=== PATIENT | female | born 1955 | race African-American/Black ===

== ENCOUNTER 2019-03-31 01:43 | Emergency (ER) | payer SELFPAY ==
[~2019-03-31] VITALS: Ht 157.5 cm; Wt 50.0 kg
[2019-03-31 02:53] LABS: BASOPHILS % (AUTO) 1.9 % (0.0-2.0); EOSINOPHILS % (AUTO) 1.8 % (1.0-6.0); HEMATOCRIT 32.9 % (36-46); HEMOGLOBIN 10.4 g/dL (12.0-16.0); LYMPHOCYTES # (AUTO) 0.8 K/uL (1.0-4.8); LYMPHOCYTES % (AUTO) 10.1 % (22.0-44.0); MEAN CORPUSCULAR HEMOGLOBIN 26.2 pg (26.0-34.0); MEAN CORPUSCULAR HGB CONC 31.6 G/dL (31.0-37.0); MEAN CORPUSCULAR VOLUME 83 fL (80-100); MONOCYTES # (AUTO) 0.8 K/uL (0.1-1.0); MONOCYTES % (AUTO) 9.9 % (2.0-9.0); NEUTROPHILS % (AUTO) 76.3 % (40.0-70.0); PLATELET COUNT (AUTO) 284 K/uL (150-450); RED BLOOD CELL COUNT(AUTO) 3.97 MIL/uL (4.00-5.20); RED CELL DISTRIBUTION WIDTH 19.4 % (11.5-14.5)
[2019-03-31 02:56] LABS: APPEARANCE,URINE CLOUDY (CLEAR); BILIRUBIN,URINE NEGATIVE (NEGATIVE); GLUCOSE, URINE (UA) NEGATIVE (NEGATIVE); KETONES,URINE NEGATIVE (NEGATIVE); LEUKOCYTE ESTERASE ,URINE TRACE (NEGATIVE); NITRATE,URINE NEGATIVE (NEGATIVE); OCCULT BLOOD,URINE SMALL (NEGATIVE); PROTEIN,URINE NEGATIVE (NEGATIVE); UROBILINOGEN,URINE 0.2 mg/dL (<=1.0)
[2019-03-31 02:58] LABS: ANION GAP 10 mmol/L (8-16); CALCIUM, TOTAL 8.8 mg/dL (8.8-10.5); CARBON DIOXIDE 27 mmol/L (22-29); CHLORIDE 105 mmol/L (98-107); CREATININE 0.85 mg/dL (0.60-1.30); GLOMERULAR FILTR. RATE CALC > 60 mL/min (>60); GLUCOSE,RANDOM 86 mg/dL (70-110); POTASSIUM 3.4 mmol/L (3.5-5.1); SODIUM SERUM 142 mmol/L (136-145); UREA NITROGEN, BLOOD 13 mg/dL (7-18)
[2019-03-31 03:04] LABS: ALBUMIN 3.4 g/dL (3.4-5.0); ALKALINE PHOSPHATASE 90 U/L (46-116); ASPARTATE AMINOTRANSFERASE 20 U/L (15-37); BILIRUBIN,TOTAL 0.2 mg/dL (0.1-1.0); LIPASE 139 U/L (73-393); TOTAL PROTEIN, SERUM 7.5 g/dL (6.4-8.2)
[2019-03-31 03:07] LABS: BACTERIA,URINE Moderate /HPF (None Seen); SQUAMOUS EPITHELIAL CELL,UR Moderate /LPF (None Seen)
[2019-03-31 03:14] LABS: ALANINE AMINOTRANSFERASE 17 U/L (12-78)
[2019-03-31] MEDS ORDERED: LOPERAMIDE HCL 2 MG CAPSULE PO ONE (03:45)
[2019-03-31 05:01] VITALS: BP 132/82
== END 2019-03-31 05:01 | disposition home or self-care (01) ==
LOC: EMS 01:45
DX: R19.7 Diarrhea, unspecified (principal); F12.90 Cannabis use, unspecified, uncomplicated; F17.210 Nicotine dependence, cigarettes, uncomplicated
CPT/HCPCS: 87086

== ENCOUNTER 2019-03-31 07:21 | Emergency (ER) | payer SELFPAY ==
[~2019-03-31] VITALS: Ht 167.6 cm; Wt 59.1 kg
[2019-03-31] MEDS ORDERED: BISMUTH SUBSALICYLATE 524 MG/30 ML SUSPENSION UDCUP PO ONE (10:45)
[2019-03-31] MEDS ORDERED: ZINC OXIDE 16% PASTE 57 GM TUBE TP ONE (10:45)
[2019-03-31] MEDS ORDERED: LOPERAMIDE HCL 2 MG CAPSULE PO ONE (10:45)
[2019-03-31 10:48] VITALS: BP 124/60
== END 2019-03-31 11:13 | disposition home or self-care (01) ==
LOC: EMS 07:23
DX: R19.7 Diarrhea, unspecified (principal); K64.4 Residual hemorrhoidal skin tags

== ENCOUNTER 2019-09-20 10:35 | Inpatient (IN) | payer MEDICAID ==
[~2019-09-20] VITALS: Ht 165.1 cm; Wt 46.9 kg
[2019-09-20 12:45] VITALS: BP 112/64
[2019-09-20] MEDS ORDERED: OLANZapine 5 MG RAPDIS TABLET PO PRN (13:15)
[2019-09-20] MEDS ORDERED: ONDANSETRON HCL 4 MG TABLET PO PRN (13:30)
[2019-09-20] MEDS ORDERED: PNEUMOCOCCAL VACCINE POLYVALENT 0.5 ML VIAL [PPSV23] IM ONE (13:30)
[2019-09-20] MEDS ORDERED: ACETAMINOPHEN 325 MG TABLET PO PRN (13:30)
[2019-09-20] MEDS ORDERED: ALBUTEROL SULFATE HFA 90 MCG/PUFF 8 GM INHALER IH PRN (13:30)
[2019-09-20] MEDS ORDERED: NICOTINE 14 MG/24 HOUR PATCH TD PRN (13:30)
[2019-09-20] MEDS ORDERED: CloNIDine HCL 0.1 MG TABLET PO PRN (13:30)
[2019-09-20] MEDS ORDERED: MAGNESIUM HYDROXIDE SUSPENSION 30 ML UDCUP PO PRN (13:30)
[2019-09-20] MEDS ORDERED: DOCUSATE SODIUM 100 MG CAPSULE PO PRN (13:30)
[2019-09-20 14:39] LABS: GLUCOMETER DEV NAME(LOC) BV2S.; GLUCOSE,POINT OF CARE 70 MG/DL (70-110)
[2019-09-20 16:06] VITALS: BP 136/71
[2019-09-20 17:12] LABS: GLUCOMETER DEV NAME(LOC) BV2S.; GLUCOSE,POINT OF CARE 104 MG/DL (70-110)
[2019-09-21 02:40] VITALS: BP 132/73
[2019-09-21] MEDS: IBUPROFEN 400 MG TABLET PO PRN (02:52)
[2019-09-21 06:25] LABS: GLUCOMETER DEV NAME(LOC) BV2S.; GLUCOSE,POINT OF CARE 70 MG/DL (70-110)
[2019-09-21 07:35] LABS: HEMATOCRIT 31.9 % (36-46); HEMOGLOBIN 10.4 g/dL (12.0-16.0); MEAN CORPUSCULAR HEMOGLOBIN 26.7 pg (26.0-34.0); MEAN CORPUSCULAR HGB CONC 32.6 G/dL (31.0-37.0); MEAN CORPUSCULAR VOLUME 82 fL (80-100); PLATELET COUNT (AUTO) 191 K/uL (150-450); RED BLOOD CELL COUNT(AUTO) 3.89 MIL/uL (4.00-5.20); RED CELL DISTRIBUTION WIDTH 18.7 % (11.5-14.5)
[2019-09-21 07:49] LABS: ALANINE AMINOTRANSFERASE 19 U/L (12-78); ALBUMIN 2.8 g/dL (3.4-5.0); ALKALINE PHOSPHATASE 86 U/L (46-116); ANION GAP 5 mmol/L (8-16); ASPARTATE AMINOTRANSFERASE 13 U/L (15-37); BILIRUBIN,TOTAL 0.1 mg/dL (0.1-1.0); CALCIUM, TOTAL 8.6 mg/dL (8.8-10.5); CARBON DIOXIDE 28 mmol/L (22-29); CHLORIDE 103 mmol/L (98-107); CHOL/HDL RATIO 4.6 (3.9-5.7); CHOLESTEROL 195 mg/dL (131-200); CREATININE 0.78 mg/dL (0.60-1.30); GLOMERULAR FILTR. RATE CALC > 60 mL/min (>60); GLUCOSE,RANDOM 78 mg/dL (70-110); HDL CHOLESTEROL 42 mg/dL (40-60); LDL CHOL (CALC.) 136 mg/dL (0-130); POTASSIUM 4.8 mmol/L (3.5-5.1); SODIUM SERUM 136 mmol/L (136-145); TRIGLYCERIDES 85 mg/dL (15-150); UREA NITROGEN, BLOOD 15 mg/dL (7-18)
[2019-09-21 07:56] LABS: HEMOGLOBIN A1C 5.9 % (3.8-5.6)
[2019-09-21 08:32] LABS: BAND NEUTROPHILS % (MANUAL) 3 % (0-5); LYMPHOCYTES % (MANUAL) 18 % (22-44); MONOCYTES % (MANUAL) 6 % (2-9); SEGMENTED NEUTROPHILS % 73 % (40-70)
[2019-09-21 08:33] VITALS: BP 102/63
[2019-09-21] MEDS: NICOTINE 14 MG/24 HOUR PATCH TD SCH (08:54)
[2019-09-21] MEDS: ASPIRIN 81 MG CHEWABLE TABLET PO SCH (12:33)
[2019-09-21] MEDS: LOPERAMIDE HCL 2 MG CAPSULE PO PRN (15:50)
[2019-09-21 16:16] VITALS: BP 131/76
[2019-09-21] MEDS: MetFORMIN HCL 500 MG TABLET PO SCH (16:55)
[2019-09-21 17:13] LABS: GLUCOMETER DEV NAME(LOC) BV2S.; GLUCOSE,POINT OF CARE 70 MG/DL (70-110)
[2019-09-21] MEDS: QUEtiapine FUMARATE 100 MG TABLET PO SCH (20:24)
[2019-09-21] MEDS: ATORVASTATIN CALCIUM 10 MG TABLET PO SCH (20:24)
[2019-09-22] MEDS: MetFORMIN HCL 500 MG TABLET PO SCH ×2 (06:36→17:01)
[2019-09-22 06:37] VITALS: BP 112/71
[2019-09-22 06:38] LABS: GLUCOMETER DEV NAME(LOC) BV2S.; GLUCOSE,POINT OF CARE 85 MG/DL (70-110)
[2019-09-22] MEDS: QUEtiapine FUMARATE 25 MG TABLET PO SCH (08:24)
[2019-09-22] MEDS: ASPIRIN 81 MG CHEWABLE TABLET PO SCH (08:24)
[2019-09-22] MEDS: NICOTINE 14 MG/24 HOUR PATCH TD SCH (08:25)
[2019-09-22 08:36] VITALS: BP 117/65
[2019-09-22] MEDS: LOPERAMIDE HCL 2 MG CAPSULE PO PRN (12:57)
[2019-09-22 16:05] VITALS: BP 100/64
[2019-09-22] MEDS: MUPIROCIN CALCIUM 2% 22 GM OINTMENT NASAL SCH (17:01)
[2019-09-22] MEDS: MAG HYDROX/AL HYDROX/SIMETH ES 30 ML SUSPENSION UDCUP PO PRN (17:01)
[2019-09-22 17:05] LABS: GLUCOMETER DEV NAME(LOC) BV2S.; GLUCOSE,POINT OF CARE 111 MG/DL (70-110)
[2019-09-22] MEDS: ATORVASTATIN CALCIUM 10 MG TABLET PO SCH (20:21)
[2019-09-22] MEDS: QUEtiapine FUMARATE 100 MG TABLET PO SCH (20:21)
[2019-09-23 00:02] VITALS: BP 115/72
[2019-09-23] MEDS: ZOLPIDEM TARTRATE 10 MG TABLET PO PRN (00:04)
[2019-09-23] MEDS: MetFORMIN HCL 500 MG TABLET PO SCH ×2 (06:20→17:07)
[2019-09-23 06:34] LABS: GLUCOMETER DEV NAME(LOC) BV2S.; GLUCOSE,POINT OF CARE 86 MG/DL (70-110)
[2019-09-23] MEDS: NICOTINE 14 MG/24 HOUR PATCH TD SCH ×2 (08:40→09:00)
[2019-09-23] MEDS: MUPIROCIN CALCIUM 2% 22 GM OINTMENT NASAL SCH ×3 (08:40→17:34)
[2019-09-23] MEDS: QUEtiapine FUMARATE 25 MG TABLET PO SCH ×2 (08:41→09:00)
[2019-09-23] MEDS: ASPIRIN 81 MG CHEWABLE TABLET PO SCH ×2 (08:41→09:00)
[2019-09-23 08:43] VITALS: BP 121/77
[2019-09-23 14:15] VITALS: BP 117/72
[2019-09-23] MEDS: IBUPROFEN 400 MG TABLET PO PRN (14:15)
[2019-09-23 16:09] LABS: GLUCOMETER DEV NAME(LOC) BV2S.; GLUCOSE,POINT OF CARE 86 MG/DL (70-110)
[2019-09-23] MEDS: GuaiFENesin/D-METHORPHAN [SUGAR-FREE] 200-20MG/10 ML SYRUP UDCUP PO PRN (18:28)
[2019-09-23] MEDS: ATORVASTATIN CALCIUM 10 MG TABLET PO SCH (21:08)
[2019-09-23] MEDS: QUEtiapine FUMARATE 100 MG TABLET PO SCH (21:08)
[2019-09-24 00:27] VITALS: BP 119/76
[2019-09-24 06:22] LABS: GLUCOMETER DEV NAME(LOC) BV2S.; GLUCOSE,POINT OF CARE 76 MG/DL (70-110)
[2019-09-24] MEDS: MetFORMIN HCL 500 MG TABLET PO SCH ×2 (06:54→16:54)
[2019-09-24 08:22] VITALS: BP 128/95
[2019-09-24] MEDS: MUPIROCIN CALCIUM 2% 22 GM OINTMENT NASAL SCH ×2 (08:34→16:54)
[2019-09-24] MEDS: QUEtiapine FUMARATE 25 MG TABLET PO SCH (08:35)
[2019-09-24] MEDS: ASPIRIN 81 MG CHEWABLE TABLET PO SCH (08:35)
[2019-09-24] MEDS: NICOTINE 14 MG/24 HOUR PATCH TD SCH (08:35)
[2019-09-24] MEDS: GuaiFENesin/D-METHORPHAN [SUGAR-FREE] 200-20MG/10 ML SYRUP UDCUP PO PRN ×2 (12:57→23:37)
[2019-09-24 17:04] LABS: GLUCOMETER DEV NAME(LOC) BV2S.; GLUCOSE,POINT OF CARE 124 MG/DL (70-110)
[2019-09-24 17:27] VITALS: BP 138/70
[2019-09-24] MEDS: QUEtiapine FUMARATE 100 MG TABLET PO SCH (21:07)
[2019-09-24] MEDS: ATORVASTATIN CALCIUM 10 MG TABLET PO SCH (21:07)
[2019-09-24] MEDS: MAG HYDROX/AL HYDROX/SIMETH ES 30 ML SUSPENSION UDCUP PO PRN (22:23)
[2019-09-25 00:38] VITALS: BP 109/64
[2019-09-25] MEDS: GuaiFENesin/D-METHORPHAN [SUGAR-FREE] 200-20MG/10 ML SYRUP UDCUP PO PRN ×2 (06:48→15:46)
[2019-09-25] MEDS: MetFORMIN HCL 500 MG TABLET PO SCH ×2 (06:52→17:02)
[2019-09-25] MEDS: NICOTINE 14 MG/24 HOUR PATCH TD SCH (09:00)
[2019-09-25] MEDS: ASPIRIN 81 MG CHEWABLE TABLET PO SCH (09:13)
[2019-09-25] MEDS: QUEtiapine FUMARATE 25 MG TABLET PO SCH (09:14)
[2019-09-25] MEDS: MUPIROCIN CALCIUM 2% 22 GM OINTMENT NASAL SCH ×2 (09:20→17:02)
[2019-09-25] MEDS: LOPERAMIDE HCL 2 MG CAPSULE PO PRN (10:58)
[2019-09-25 11:52] VITALS: BP 112/68
[2019-09-25] MEDS: IBUPROFEN 400 MG TABLET PO PRN ×2 (11:52→21:24)
[2019-09-25 16:19] VITALS: BP 114/84
[2019-09-25 16:56] LABS: GLUCOMETER DEV NAME(LOC) BV2S.; GLUCOSE,POINT OF CARE 96 MG/DL (70-110)
[2019-09-25] MEDS: QUEtiapine FUMARATE 100 MG TABLET PO SCH (20:18)
[2019-09-25] MEDS: ATORVASTATIN CALCIUM 10 MG TABLET PO SCH (20:18)
[2019-09-26 00:26] VITALS: BP 100/59
[2019-09-26] MEDS: MetFORMIN HCL 500 MG TABLET PO SCH ×2 (06:30→16:10)
[2019-09-26 07:03] LABS: GLUCOMETER DEV NAME(LOC) BV2S.; GLUCOSE,POINT OF CARE 84 MG/DL (70-110)
[2019-09-26 08:15] VITALS: BP 103/63
[2019-09-26] MEDS: NICOTINE 14 MG/24 HOUR PATCH TD SCH (09:39)
[2019-09-26] MEDS: QUEtiapine FUMARATE 25 MG TABLET PO SCH (09:39)
[2019-09-26] MEDS: ASPIRIN 81 MG CHEWABLE TABLET PO SCH (09:39)
[2019-09-26] MEDS: MUPIROCIN CALCIUM 2% 22 GM OINTMENT NASAL SCH ×2 (09:40→16:10)
[2019-09-26] MEDS: GuaiFENesin/D-METHORPHAN [SUGAR-FREE] 200-20MG/10 ML SYRUP UDCUP PO PRN ×2 (13:10→22:32)
[2019-09-26 17:00] LABS: GLUCOMETER DEV NAME(LOC) BV2S.; GLUCOSE,POINT OF CARE 127 MG/DL (70-110)
[2019-09-26] MEDS: QUEtiapine FUMARATE 100 MG TABLET PO SCH (20:00)
[2019-09-26] MEDS: ATORVASTATIN CALCIUM 10 MG TABLET PO SCH (20:01)
[2019-09-26 20:44] VITALS: BP 136/77
[2019-09-26] MEDS: IBUPROFEN 400 MG TABLET PO PRN (20:44)
[2019-09-27 01:14] VITALS: BP 112/56
[2019-09-27] MEDS: ZOLPIDEM TARTRATE 10 MG TABLET PO PRN (01:43)
[2019-09-27] MEDS: PETROLATUM,WHITE 28 GM JELLY TP PRN (02:35)
[2019-09-27 06:24] LABS: GLUCOMETER DEV NAME(LOC) BV2S.; GLUCOSE,POINT OF CARE 77 MG/DL (70-110)
[2019-09-27] MEDS: MetFORMIN HCL 500 MG TABLET PO SCH ×2 (06:36→16:51)
[2019-09-27] MEDS: NICOTINE 14 MG/24 HOUR PATCH TD SCH (08:12)
[2019-09-27] MEDS: IBUPROFEN 400 MG TABLET PO PRN ×2 (08:13→16:52)
[2019-09-27] MEDS: QUEtiapine FUMARATE 25 MG TABLET PO SCH (08:13)
[2019-09-27] MEDS: ASPIRIN 81 MG CHEWABLE TABLET PO SCH (08:13)
[2019-09-27] MEDS: MUPIROCIN CALCIUM 2% 22 GM OINTMENT NASAL SCH ×2 (08:14→16:52)
[2019-09-27] MEDS: LORazepam 2 MG TABLET PO PRN (09:01)
[2019-09-27] MEDS: GuaiFENesin/D-METHORPHAN [SUGAR-FREE] 200-20MG/10 ML SYRUP UDCUP PO PRN ×2 (12:07→18:38)
[2019-09-27] MEDS: LOPERAMIDE HCL 2 MG CAPSULE PO PRN (12:07)
[2019-09-27 16:03] VITALS: BP 111/68
[2019-09-27 17:07] LABS: GLUCOMETER DEV NAME(LOC) BV2S.; GLUCOSE,POINT OF CARE 113 MG/DL (70-110)
[2019-09-27] MEDS: ATORVASTATIN CALCIUM 10 MG TABLET PO SCH (20:02)
[2019-09-27] MEDS: QUEtiapine FUMARATE 100 MG TABLET PO SCH (20:02)
[2019-09-28] MEDS: ZOLPIDEM TARTRATE 10 MG TABLET PO PRN (00:12)
[2019-09-28] MEDS: LOPERAMIDE HCL 2 MG CAPSULE PO PRN (00:12)
[2019-09-28 00:54] VITALS: BP 105/68
[2019-09-28] MEDS: IBUPROFEN 400 MG TABLET PO PRN ×2 (02:17→21:36)
[2019-09-28] MEDS: GuaiFENesin/D-METHORPHAN [SUGAR-FREE] 200-20MG/10 ML SYRUP UDCUP PO PRN (02:17)
[2019-09-28] MEDS: MetFORMIN HCL 500 MG TABLET PO SCH ×2 (07:00→16:43)
[2019-09-28 08:21] VITALS: BP 125/86
[2019-09-28] MEDS: QUEtiapine FUMARATE 25 MG TABLET PO SCH (08:24)
[2019-09-28] MEDS: ASPIRIN 81 MG CHEWABLE TABLET PO SCH (08:24)
[2019-09-28] MEDS: NICOTINE 14 MG/24 HOUR PATCH TD SCH (08:25)
[2019-09-28] MEDS: MUPIROCIN CALCIUM 2% 22 GM OINTMENT NASAL SCH (08:26)
[2019-09-28] MEDS: ATORVASTATIN CALCIUM 10 MG TABLET PO SCH (20:01)
[2019-09-28] MEDS: QUEtiapine FUMARATE 100 MG TABLET PO SCH (20:01)
[2019-09-29] MEDS: ZOLPIDEM TARTRATE 10 MG TABLET PO PRN (02:37)
[2019-09-29 04:55] VITALS: BP 105/65
[2019-09-29 06:41] VITALS: BP 105/65
[2019-09-29] MEDS: MetFORMIN HCL 500 MG TABLET PO SCH ×2 (07:12→16:41)
[2019-09-29] MEDS: ASPIRIN 81 MG CHEWABLE TABLET PO SCH (08:37)
[2019-09-29] MEDS: NICOTINE 14 MG/24 HOUR PATCH TD SCH (08:37)
[2019-09-29] MEDS: QUEtiapine FUMARATE 25 MG TABLET PO SCH (08:37)
[2019-09-29 12:08] VITALS: BP 131/69
[2019-09-29] MEDS: GuaiFENesin/D-METHORPHAN [SUGAR-FREE] 200-20MG/10 ML SYRUP UDCUP PO PRN ×2 (13:10→20:55)
[2019-09-29] MEDS: IBUPROFEN 400 MG TABLET PO PRN (13:10)
[2019-09-29 17:39] LABS: GLUCOMETER DEV NAME(LOC) BV2S.; GLUCOSE,POINT OF CARE 83 MG/DL (70-110)
[2019-09-29] MEDS: LORazepam 2 MG TABLET PO PRN (20:17)
[2019-09-29] MEDS: ATORVASTATIN CALCIUM 10 MG TABLET PO SCH (20:17)
[2019-09-29] MEDS: QUEtiapine FUMARATE 100 MG TABLET PO SCH (20:17)
[2019-09-30 05:12] VITALS: BP 105/77
[2019-09-30] MEDS: MetFORMIN HCL 500 MG TABLET PO SCH ×2 (06:07→16:44)
[2019-09-30 07:23] LABS: GLUCOMETER DEV NAME(LOC) BV2S.; GLUCOSE,POINT OF CARE 82 MG/DL (70-110)
[2019-09-30] MEDS: QUEtiapine FUMARATE 25 MG TABLET PO SCH (08:06)
[2019-09-30] MEDS: NICOTINE 14 MG/24 HOUR PATCH TD SCH (08:07)
[2019-09-30] MEDS: ASPIRIN 81 MG CHEWABLE TABLET PO SCH (08:07)
[2019-09-30 09:04] VITALS: BP 124/78
[2019-09-30 12:48] VITALS: BP 121/75
[2019-09-30] MEDS: IBUPROFEN 400 MG TABLET PO PRN (12:48)
[2019-09-30] MEDS: GuaiFENesin/D-METHORPHAN [SUGAR-FREE] 200-20MG/10 ML SYRUP UDCUP PO PRN (12:48)
[2019-09-30 16:04] VITALS: BP 105/71
[2019-09-30 17:01] LABS: GLUCOMETER DEV NAME(LOC) BV2S.; GLUCOSE,POINT OF CARE 109 MG/DL (70-110)
[2019-09-30] MEDS: ATORVASTATIN CALCIUM 10 MG TABLET PO SCH (20:12)
[2019-09-30] MEDS: QUEtiapine FUMARATE 100 MG TABLET PO SCH (20:12)
[2019-09-30] MEDS: LORazepam 2 MG TABLET PO PRN (22:39)
[2019-10-01 04:42] VITALS: BP 121/81
[2019-10-01] MEDS: GuaiFENesin/D-METHORPHAN [SUGAR-FREE] 200-20MG/10 ML SYRUP UDCUP PO PRN ×2 (05:27→20:56)
[2019-10-01] MEDS: IBUPROFEN 400 MG TABLET PO PRN ×2 (05:30→22:33)
[2019-10-01] MEDS: MetFORMIN HCL 500 MG TABLET PO SCH ×2 (06:31→16:29)
[2019-10-01] MEDS: LORazepam 2 MG TABLET PO PRN ×2 (06:31→23:45)
[2019-10-01 06:39] LABS: GLUCOMETER DEV NAME(LOC) BV2S.; GLUCOSE,POINT OF CARE 137 MG/DL (70-110)
[2019-10-01] MEDS: NICOTINE 14 MG/24 HOUR PATCH TD SCH (08:14)
[2019-10-01] MEDS: QUEtiapine FUMARATE 25 MG TABLET PO SCH (08:14)
[2019-10-01] MEDS: ASPIRIN 81 MG CHEWABLE TABLET PO SCH (08:14)
[2019-10-01 08:26] VITALS: BP 102/67
[2019-10-01] MEDS: LOPERAMIDE HCL 2 MG CAPSULE PO PRN ×2 (08:30→20:55)
[2019-10-01] MEDS: MAG HYDROX/AL HYDROX/SIMETH ES 30 ML SUSPENSION UDCUP PO PRN ×2 (12:19→20:30)
[2019-10-01 16:03] VITALS: BP 108/71
[2019-10-01 16:41] LABS: GLUCOMETER DEV NAME(LOC) BV2S.; GLUCOSE,POINT OF CARE 108 MG/DL (70-110)
[2019-10-01] MEDS: PETROLATUM,WHITE 28 GM JELLY TP PRN (16:41)
[2019-10-01] MEDS: QUEtiapine FUMARATE 100 MG TABLET PO SCH (20:29)
[2019-10-01] MEDS: ATORVASTATIN CALCIUM 10 MG TABLET PO SCH (20:29)
[2019-10-01] MEDS: ZOLPIDEM TARTRATE 10 MG TABLET PO PRN (20:29)
[2019-10-01 22:43] VITALS: BP 109/69
[2019-10-02 00:27] VITALS: BP 110/81
[2019-10-02 06:36] LABS: GLUCOMETER DEV NAME(LOC) BV2S.; GLUCOSE,POINT OF CARE 99 MG/DL (70-110)
[2019-10-02] MEDS: MetFORMIN HCL 500 MG TABLET PO SCH ×2 (06:39→16:51)
[2019-10-02] MEDS: GuaiFENesin/D-METHORPHAN [SUGAR-FREE] 200-20MG/10 ML SYRUP UDCUP PO PRN (08:05)
[2019-10-02] MEDS: IBUPROFEN 400 MG TABLET PO PRN ×2 (08:05→19:52)
[2019-10-02] MEDS: NICOTINE 14 MG/24 HOUR PATCH TD SCH (08:06)
[2019-10-02] MEDS: QUEtiapine FUMARATE 25 MG TABLET PO SCH (08:07)
[2019-10-02] MEDS: ASPIRIN 81 MG CHEWABLE TABLET PO SCH (08:07)
[2019-10-02 08:38] VITALS: BP 104/63
[2019-10-02] MEDS ORDERED: DiphenhydrAMINE HCL 25 MG CAPSULE PO ONE (13:30)
[2019-10-02 17:02] LABS: GLUCOMETER DEV NAME(LOC) BV2S.; GLUCOSE,POINT OF CARE 76 MG/DL (70-110)
[2019-10-02 19:49] VITALS: BP 103/81
[2019-10-02 19:50] VITALS: BP 103/81
[2019-10-02] MEDS: ATORVASTATIN CALCIUM 10 MG TABLET PO SCH (20:56)
[2019-10-02] MEDS: QUEtiapine FUMARATE 100 MG TABLET PO SCH (20:56)
[2019-10-03 06:50] LABS: GLUCOMETER DEV NAME(LOC) BV2S.; GLUCOSE,POINT OF CARE 125 MG/DL (70-110)
[2019-10-03] MEDS: MetFORMIN HCL 500 MG TABLET PO SCH (07:06)
[2019-10-03] MEDS: QUEtiapine FUMARATE 25 MG TABLET PO SCH (08:22)
[2019-10-03] MEDS: ASPIRIN 81 MG CHEWABLE TABLET PO SCH (08:22)
[2019-10-03] MEDS: NICOTINE 14 MG/24 HOUR PATCH TD SCH (08:23)
[2019-10-03] MEDS ORDERED: QUET100T PO (11:43)
[2019-10-03] MEDS ORDERED: QUET25TA PO (11:45)
[2019-10-03] MEDS ORDERED: ASPI-728 PO (11:49)
[2019-10-03] MEDS ORDERED: ATOR10TA84 PO (11:49)
[2019-10-03] MEDS ORDERED: METF-960 PO (11:49)
[2019-10-03] MEDS: GuaiFENesin/D-METHORPHAN [SUGAR-FREE] 200-20MG/10 ML SYRUP UDCUP PO PRN (12:33)
[2019-10-03] MEDS: MAG HYDROX/AL HYDROX/SIMETH ES 30 ML SUSPENSION UDCUP PO PRN (12:33)
== END 2019-10-03 13:15 | disposition home or self-care (01) | DRG 750 ==
LOC: B2S 13:01
PROVIDERS: ADMIT Psychiatry & Neurology Child & Adolescent Psychiatry; ATTEND Psychiatry & Neurology Child & Adolescent Psychiatry
DX: F20.9 Schizophrenia, unspecified (principal); Z91.14 Patient's other noncompliance with medication regimen; D64.9 Anemia, unspecified; F17.200 Nicotine dependence, unspecified, uncomplicated; F41.9 Anxiety disorder, unspecified; F12.90 Cannabis use, unspecified, uncomplicated; R19.7 Diarrhea, unspecified; I25.2 Old myocardial infarction
CPT/HCPCS: 83036; 87081; 90732

== ENCOUNTER 2019-10-15 21:28 | Inpatient (IN) | payer MEDICAID ==
[~2019-10-15] VITALS: Ht 162.6 cm; Wt 50.8 kg
[~2019-10-15 21:28] MED LIST: ASPI-728 PO; ATOR10TA84 PO; METF-960 PO; QUET100T PO; QUET25TA PO
[2019-10-15] MEDS ORDERED: -PHARMACY VACCINE NOTE- MISC ONE (23:45)
[2019-10-16 00:14] LABS: GLUCOMETER DEV NAME(LOC) BV3N.; GLUCOSE,POINT OF CARE 285 MG/DL (70-110)
[2019-10-16 00:30] VITALS: BP 140/91
[2019-10-16] MEDS ORDERED: GLUCAGON,HUMAN RECOMBINANT 1 MG VIAL IM PRN (00:30)
[2019-10-16] MEDS ORDERED: INSULIN LISPRO 100 UNITS/ML SQ PRN (00:30)
[2019-10-16] MEDS ORDERED: ALBUTEROL SULFATE HFA 90 MCG/PUFF 8 GM INHALER IH PRN (08:15)
[2019-10-16] MEDS ORDERED: ONDANSETRON HCL 4 MG TABLET PO PRN (08:15)
[2019-10-16] MEDS ORDERED: DOCUSATE SODIUM 100 MG CAPSULE PO PRN (08:15)
[2019-10-16] MEDS ORDERED: NICOTINE 14 MG/24 HOUR PATCH TD PRN (08:15)
[2019-10-16] MEDS ORDERED: PETROLATUM,WHITE 28 GM JELLY TP PRN (08:15)
[2019-10-16] MEDS ORDERED: MAGNESIUM HYDROXIDE SUSPENSION 30 ML UDCUP PO PRN (08:15)
[2019-10-16] MEDS ORDERED: CloNIDine HCL 0.1 MG TABLET PO PRN (08:15)
[2019-10-16] MEDS: QUEtiapine FUMARATE 25 MG TABLET PO SCH (09:13)
[2019-10-16] MEDS ORDERED: DiphenhydrAMINE HCL 50 MG/ML VIAL IM ONE (09:30)
[2019-10-16] MEDS ORDERED: LORazepam 2 MG/ML VIAL IM ONE (09:30)
[2019-10-16] MEDS ORDERED: HALOPERIDOL LACTATE 5 MG/ML VIAL IM ONE (09:30)
[2019-10-16] MEDS: LORazepam 2 MG TABLET PO PRN (18:19)
[2019-10-16] MEDS: QUEtiapine FUMARATE 100 MG TABLET PO SCH (20:18)
[2019-10-16 20:42] VITALS: BP 131/85
[2019-10-16] MEDS ORDERED: QUEtiapine FUMARATE 100 MG TABLET PO SCH (21:00)
[2019-10-16] MEDS: IBUPROFEN 400 MG TABLET PO PRN (21:09)
[2019-10-16 21:24] LABS: GLUCOMETER DEV NAME(LOC) BV3N.; GLUCOSE,POINT OF CARE 82 MG/DL (70-110)
[2019-10-17 03:42] VITALS: BP 126/80
[2019-10-17] MEDS: GuaiFENesin/D-METHORPHAN [SUGAR-FREE] 200-20MG/10 ML SYRUP UDCUP PO PRN ×2 (03:44→10:42)
[2019-10-17] MEDS: LORazepam 2 MG TABLET PO PRN ×3 (03:47→22:16)
[2019-10-17 06:28] LABS: GLUCOMETER DEV NAME(LOC) BV3N.; GLUCOSE,POINT OF CARE 88 MG/DL (70-110)
[2019-10-17 08:04] LABS: HEMATOCRIT 34.3 % (36-46); HEMOGLOBIN 10.9 g/dL (12.0-16.0); MEAN CORPUSCULAR HEMOGLOBIN 26.3 pg (26.0-34.0); MEAN CORPUSCULAR HGB CONC 31.8 G/dL (31.0-37.0); MEAN CORPUSCULAR VOLUME 83 fL (80-100); PLATELET COUNT (AUTO) 232 K/uL (150-450); RED BLOOD CELL COUNT(AUTO) 4.15 MIL/uL (4.00-5.20); RED CELL DISTRIBUTION WIDTH 18.5 % (11.5-14.5)
[2019-10-17 08:19] LABS: BAND NEUTROPHILS % (MANUAL) 0 % (0-5)
[2019-10-17 08:25] VITALS: BP 134/81
[2019-10-17 08:26] LABS: ALANINE AMINOTRANSFERASE 29 U/L (12-78); ALBUMIN 3.4 g/dL (3.4-5.0); ALKALINE PHOSPHATASE 85 U/L (46-116); ANION GAP 6 mmol/L (8-16); ASPARTATE AMINOTRANSFERASE 17 U/L (15-37); BILIRUBIN,TOTAL 0.1 mg/dL (0.1-1.0); CALCIUM, TOTAL 8.9 mg/dL (8.8-10.5); CARBON DIOXIDE 28 mmol/L (22-29); CHLORIDE 107 mmol/L (98-107); CHOL/HDL RATIO 3.8 (3.9-5.7); CHOLESTEROL 174 mg/dL (131-200); CREATININE 0.81 mg/dL (0.60-1.30); FREE T4 (FREE THYROXINE) 0.92 ng/dL (0.76-1.46); GLOMERULAR FILTR. RATE CALC > 60 mL/min (>60); GLUCOSE,RANDOM 82 mg/dL (70-110); HDL CHOLESTEROL 46 mg/dL (40-60); LDL CHOL (CALC.) 107 mg/dL (0-130); POTASSIUM 4.6 mmol/L (3.5-5.1); SODIUM SERUM 141 mmol/L (136-145); THYROID STIMULATING HORMONE 3.31 uIU/mL (0.36-3.74); TOTAL PROTEIN, SERUM 6.6 g/dL (6.4-8.2); TRIGLYCERIDES 106 mg/dL (15-150); UREA NITROGEN, BLOOD 10 mg/dL (7-18)
[2019-10-17 08:30] LABS: BASOPHILS % (MANUAL) 3 % (0-2); LYMPHOCYTES % (MANUAL) 30 % (22-44); MONOCYTES % (MANUAL) 6 % (2-9); SEGMENTED NEUTROPHILS % 61 % (40-70)
[2019-10-17] MEDS: QUEtiapine FUMARATE 25 MG TABLET PO SCH (08:30)
[2019-10-17] MEDS: LOPERAMIDE HCL 2 MG CAPSULE PO PRN (10:41)
[2019-10-17 12:03] LABS: GLUCOMETER DEV NAME(LOC) BV3N.; GLUCOSE,POINT OF CARE 125 MG/DL (70-110)
[2019-10-17 16:41] VITALS: BP 114/64
[2019-10-17 17:27] LABS: GLUCOMETER DEV NAME(LOC) BV3N.; GLUCOSE,POINT OF CARE 102 MG/DL (70-110)
[2019-10-17] MEDS: QUEtiapine FUMARATE 100 MG TABLET PO SCH (20:17)
[2019-10-17] MEDS: IBUPROFEN 400 MG TABLET PO PRN (20:47)
[2019-10-17 20:58] LABS: GLUCOMETER DEV NAME(LOC) BV3N.; GLUCOSE,POINT OF CARE 91 MG/DL (70-110)
[2019-10-17] MEDS: HYDROCORTISONE 2.5% 30 GM CREAM TP SCH (21:32)
[2019-10-18] MEDS: LORazepam 2 MG TABLET PO PRN ×3 (02:37→16:57)
[2019-10-18] MEDS: GuaiFENesin/D-METHORPHAN [SUGAR-FREE] 200-20MG/10 ML SYRUP UDCUP PO PRN (02:38)
[2019-10-18 06:30] VITALS: BP 130/77
[2019-10-18 07:03] LABS: GLUCOMETER DEV NAME(LOC) BV3N.; GLUCOSE,POINT OF CARE 81 MG/DL (70-110)
[2019-10-18 08:00] VITALS: BP 124/72
[2019-10-18] MEDS: HYDROCORTISONE 2.5% 30 GM CREAM TP SCH ×3 (08:20→17:46)
[2019-10-18] MEDS: QUEtiapine FUMARATE 25 MG TABLET PO SCH (08:20)
[2019-10-18 11:04] LABS: GLUCOMETER DEV NAME(LOC) BV3N.; GLUCOSE,POINT OF CARE 101 MG/DL (70-110)
[2019-10-18] MEDS: MULTIVITAMINS WITH MINERALS, THERAPEUTIC TABLET PO SCH (12:52)
[2019-10-18] MEDS: SIMETHICONE 80 MG CHEWABLE TABLET CHEW SCH ×2 (13:40→17:47)
[2019-10-18] MEDS: LOPERAMIDE HCL 2 MG CAPSULE PO PRN (17:28)
[2019-10-18 17:48] LABS: GLUCOMETER DEV NAME(LOC) BV3N.; GLUCOSE,POINT OF CARE 75 MG/DL (70-110)
[2019-10-18 18:43] LABS: GLUCOMETER DEV NAME(LOC) BV3N.; GLUCOSE,POINT OF CARE 176 MG/DL (70-110)
[2019-10-18] MEDS: QUEtiapine FUMARATE 100 MG TABLET PO SCH (20:40)
[2019-10-18 21:02] LABS: GLUCOMETER DEV NAME(LOC) BV3N.; GLUCOSE,POINT OF CARE 65 MG/DL (70-110)
[2019-10-19 00:01] VITALS: BP 121/69
[2019-10-19] MEDS: SIMETHICONE 80 MG CHEWABLE TABLET CHEW SCH ×4 (00:03→16:43)
[2019-10-19] MEDS: IBUPROFEN 400 MG TABLET PO PRN ×2 (00:12→08:57)
[2019-10-19] MEDS: GuaiFENesin/D-METHORPHAN [SUGAR-FREE] 200-20MG/10 ML SYRUP UDCUP PO PRN ×3 (00:12→20:54)
[2019-10-19 00:16] VITALS: BP 121/69
[2019-10-19] MEDS: LORazepam 2 MG TABLET PO PRN ×2 (00:19→08:44)
[2019-10-19] MEDS: MAG HYDROX/AL HYDROX/SIMETH ES 30 ML SUSPENSION UDCUP PO PRN ×2 (04:21→20:54)
[2019-10-19 06:23] LABS: GLUCOMETER DEV NAME(LOC) BV3N.; GLUCOSE,POINT OF CARE 88 MG/DL (70-110)
[2019-10-19 08:40] VITALS: BP 109/71
[2019-10-19] MEDS: QUEtiapine FUMARATE 25 MG TABLET PO SCH (08:44)
[2019-10-19] MEDS: MULTIVITAMINS WITH MINERALS, THERAPEUTIC TABLET PO SCH (09:01)
[2019-10-19] MEDS: HYDROCORTISONE 2.5% 30 GM CREAM TP SCH ×3 (10:54→16:42)
[2019-10-19 11:18] LABS: GLUCOMETER DEV NAME(LOC) BV3N.; GLUCOSE,POINT OF CARE 135 MG/DL (70-110)
[2019-10-19 16:10] VITALS: BP 127/86
[2019-10-19 16:33] LABS: GLUCOMETER DEV NAME(LOC) BV3N.; GLUCOSE,POINT OF CARE 78 MG/DL (70-110)
[2019-10-19 20:23] LABS: GLUCOMETER DEV NAME(LOC) BV3N.; GLUCOSE,POINT OF CARE 135 MG/DL (70-110)
[2019-10-19] MEDS: QUEtiapine FUMARATE 100 MG TABLET PO SCH (20:52)
[2019-10-20] MEDS: SIMETHICONE 80 MG CHEWABLE TABLET CHEW SCH ×4 (00:01→17:05)
[2019-10-20 03:26] VITALS: BP 101/65
[2019-10-20 06:03] LABS: GLUCOMETER DEV NAME(LOC) BV3N.; GLUCOSE,POINT OF CARE 84 MG/DL (70-110)
[2019-10-20] MEDS: HYDROCORTISONE 2.5% 30 GM CREAM TP SCH ×3 (09:00→17:00)
[2019-10-20] MEDS: QUEtiapine FUMARATE 25 MG TABLET PO SCH (09:00)
[2019-10-20] MEDS: MULTIVITAMINS WITH MINERALS, THERAPEUTIC TABLET PO SCH (09:00)
[2019-10-20] MEDS: GuaiFENesin/D-METHORPHAN [SUGAR-FREE] 200-20MG/10 ML SYRUP UDCUP PO PRN ×2 (09:19→21:35)
[2019-10-20 12:36] LABS: GLUCOMETER DEV NAME(LOC) BV3N.; GLUCOSE,POINT OF CARE 110 MG/DL (70-110)
[2019-10-20] MEDS: QUEtiapine FUMARATE 100 MG TABLET PO SCH (20:43)
[2019-10-20] MEDS: LOPERAMIDE HCL 2 MG CAPSULE PO PRN (21:35)
[2019-10-21] MEDS: SIMETHICONE 80 MG CHEWABLE TABLET CHEW SCH ×4 (00:05→19:02)
[2019-10-21] MEDS: HALOPERIDOL 5 MG TABLET PO PRN (09:03)
[2019-10-21] MEDS: QUEtiapine FUMARATE 25 MG TABLET PO SCH (09:04)
[2019-10-21] MEDS: MULTIVITAMINS WITH MINERALS, THERAPEUTIC TABLET PO SCH (09:04)
[2019-10-21] MEDS: LORazepam 2 MG TABLET PO PRN (09:04)
[2019-10-21] MEDS: HYDROCORTISONE 2.5% 30 GM CREAM TP SCH ×3 (09:06→17:00)
[2019-10-21 11:45] LABS: GLUCOMETER DEV NAME(LOC) BV3N.; GLUCOSE,POINT OF CARE 94 MG/DL (70-110)
[2019-10-21] MEDS: LOPERAMIDE HCL 2 MG CAPSULE PO PRN ×2 (16:43→20:55)
[2019-10-21 17:36] VITALS: BP 141/85
[2019-10-21] MEDS: MetroNIDAZOLE 500 MG TABLET PO SCH (20:50)
[2019-10-21] MEDS: QUEtiapine FUMARATE 100 MG TABLET PO SCH (20:51)
[2019-10-22] MEDS: LORazepam 2 MG TABLET PO PRN ×4 (04:34→17:13)
[2019-10-22] MEDS: HALOPERIDOL 5 MG TABLET PO PRN (04:34)
[2019-10-22] MEDS: GuaiFENesin/D-METHORPHAN [SUGAR-FREE] 200-20MG/10 ML SYRUP UDCUP PO PRN (04:50)
[2019-10-22 05:14] VITALS: BP 136/82
[2019-10-22] MEDS: SIMETHICONE 80 MG CHEWABLE TABLET CHEW SCH ×4 (06:00→17:47)
[2019-10-22] MEDS: MULTIVITAMINS WITH MINERALS, THERAPEUTIC TABLET PO SCH (08:21)
[2019-10-22] MEDS: QUEtiapine FUMARATE 25 MG TABLET PO SCH (08:22)
[2019-10-22] MEDS: IBUPROFEN 400 MG TABLET PO PRN ×2 (08:22→22:15)
[2019-10-22] MEDS: HYDROCORTISONE 2.5% 30 GM CREAM TP SCH ×3 (08:22→17:12)
[2019-10-22 08:27] VITALS: BP 126/96
[2019-10-22] MEDS: MetroNIDAZOLE 500 MG TABLET PO SCH ×3 (09:00→17:10)
[2019-10-22 11:18] LABS: GLUCOMETER DEV NAME(LOC) BV3N.; GLUCOSE,POINT OF CARE 111 MG/DL (70-110)
[2019-10-22] MEDS ORDERED: LOPE-202 PO (12:16)
[2019-10-22 12:44] LABS: C.DIFF GDH ANTIGEN, Stool Negative (Negative); C.DIFF TOXINS A&B, Stool Negative (Negative)
[2019-10-22] MEDS ORDERED: LOPE2 PO (13:32)
[2019-10-22] MEDS: LOPERAMIDE HCL 2 MG CAPSULE PO PRN ×3 (15:36→21:53)
[2019-10-22] MEDS: QUEtiapine FUMARATE 100 MG TABLET PO SCH (20:23)
[2019-10-23] MEDS: SIMETHICONE 80 MG CHEWABLE TABLET CHEW SCH ×4 (00:13→17:57)
[2019-10-23 02:07] VITALS: BP 92/73
[2019-10-23] MEDS: LORazepam 2 MG TABLET PO PRN ×3 (02:15→16:36)
[2019-10-23] MEDS: GuaiFENesin/D-METHORPHAN [SUGAR-FREE] 200-20MG/10 ML SYRUP UDCUP PO PRN (02:15)
[2019-10-23] MEDS: HALOPERIDOL 5 MG TABLET PO PRN (05:11)
[2019-10-23 06:14] LABS: GLUCOMETER DEV NAME(LOC) BV3N.; GLUCOSE,POINT OF CARE 89 MG/DL (70-110)
[2019-10-23] MEDS: LOPERAMIDE HCL 2 MG CAPSULE PO PRN ×3 (06:34→20:50)
[2019-10-23 08:23] VITALS: BP 112/65
[2019-10-23] MEDS: MetroNIDAZOLE 500 MG TABLET PO SCH ×3 (08:48→16:28)
[2019-10-23] MEDS: MULTIVITAMINS WITH MINERALS, THERAPEUTIC TABLET PO SCH (08:48)
[2019-10-23] MEDS: QUEtiapine FUMARATE 25 MG TABLET PO SCH (08:49)
[2019-10-23] MEDS: HYDROCORTISONE 2.5% 30 GM CREAM TP SCH ×3 (08:50→16:36)
[2019-10-23 11:35] LABS: GLUCOMETER DEV NAME(LOC) BV3N.; GLUCOSE,POINT OF CARE 106 MG/DL (70-110)
[2019-10-23] MEDS: ZINC OXIDE 40%/COD LIVER OIL 57 GM PASTE TP PRN ×2 (16:35→20:52)
[2019-10-23 17:17] VITALS: BP 116/76
[2019-10-23] MEDS: QUEtiapine FUMARATE 100 MG TABLET PO SCH (20:50)
[2019-10-23] MEDS: IBUPROFEN 400 MG TABLET PO PRN (21:04)
[2019-10-23] MEDS: ACETAMINOPHEN 325 MG TABLET PO PRN (22:41)
[2019-10-24] MEDS: SIMETHICONE 80 MG CHEWABLE TABLET CHEW SCH ×4 (06:26→17:08)
[2019-10-24 06:36] LABS: GLUCOMETER DEV NAME(LOC) BV3N.; GLUCOSE,POINT OF CARE 80 MG/DL (70-110)
[2019-10-24] MEDS: MetroNIDAZOLE 500 MG TABLET PO SCH ×3 (08:08→16:35)
[2019-10-24] MEDS: MULTIVITAMINS WITH MINERALS, THERAPEUTIC TABLET PO SCH (08:09)
[2019-10-24] MEDS: QUEtiapine FUMARATE 25 MG TABLET PO SCH (08:09)
[2019-10-24] MEDS: HYDROCORTISONE 2.5% 30 GM CREAM TP SCH ×3 (08:10→16:35)
[2019-10-24 09:08] VITALS: BP 136/80
[2019-10-24] MEDS: IBUPROFEN 400 MG TABLET PO PRN (12:41)
[2019-10-24] MEDS: GuaiFENesin/D-METHORPHAN [SUGAR-FREE] 200-20MG/10 ML SYRUP UDCUP PO PRN ×2 (12:42→21:12)
[2019-10-24] MEDS: LOPERAMIDE HCL 2 MG CAPSULE PO PRN ×3 (13:35→19:15)
[2019-10-24] MEDS: ACETAMINOPHEN 325 MG TABLET PO PRN (17:20)
[2019-10-24] MEDS: QUEtiapine FUMARATE 100 MG TABLET PO SCH (20:28)
[2019-10-24 20:35] VITALS: BP 140/86
[2019-10-24] MEDS: ZINC OXIDE 40%/COD LIVER OIL 57 GM PASTE TP PRN (21:12)
[2019-10-24] MEDS: ZOLPIDEM TARTRATE 10 MG TABLET PO PRN (21:12)
[2019-10-25] MEDS: SIMETHICONE 80 MG CHEWABLE TABLET CHEW SCH ×4 (00:08→18:08)
[2019-10-25 01:10] VITALS: BP 130/82
[2019-10-25] MEDS: HALOPERIDOL 5 MG TABLET PO PRN ×2 (01:15→20:32)
[2019-10-25] MEDS: LORazepam 2 MG TABLET PO PRN ×2 (01:16→17:01)
[2019-10-25] MEDS: IBUPROFEN 400 MG TABLET PO PRN ×3 (01:40→22:20)
[2019-10-25 04:43] VITALS: BP 136/93
[2019-10-25] MEDS: MetroNIDAZOLE 500 MG TABLET PO SCH ×3 (08:33→16:33)
[2019-10-25] MEDS: QUEtiapine FUMARATE 25 MG TABLET PO SCH (08:33)
[2019-10-25] MEDS: MULTIVITAMINS WITH MINERALS, THERAPEUTIC TABLET PO SCH (08:33)
[2019-10-25] MEDS: HYDROCORTISONE 2.5% 30 GM CREAM TP SCH ×3 (08:34→16:32)
[2019-10-25 11:13] LABS: GLUCOMETER DEV NAME(LOC) BV3N.; GLUCOSE,POINT OF CARE 103 MG/DL (70-110)
[2019-10-25] MEDS: LOPERAMIDE HCL 2 MG CAPSULE PO PRN ×2 (12:28→20:34)
[2019-10-25] MEDS: ZINC OXIDE 40%/COD LIVER OIL 57 GM PASTE TP PRN ×2 (16:35→20:34)
[2019-10-25 20:22] VITALS: BP 123/74
[2019-10-25] MEDS: QUEtiapine FUMARATE 100 MG TABLET PO SCH (20:32)
[2019-10-25] MEDS: MAG HYDROX/AL HYDROX/SIMETH ES 30 ML SUSPENSION UDCUP PO PRN (20:33)
[2019-10-25 22:27] LABS: GLUCOMETER DEV NAME(LOC) BV3N.; GLUCOSE,POINT OF CARE 113 MG/DL (70-110)
[2019-10-25 22:27] LABS: GLUCOMETER DEV NAME(LOC) BV3N.; GLUCOSE,POINT OF CARE 104 MG/DL (70-110)
[2019-10-26] MEDS: SIMETHICONE 80 MG CHEWABLE TABLET CHEW SCH ×4 (00:11→17:50)
[2019-10-26 03:37] VITALS: BP 128/91
[2019-10-26 08:38] VITALS: BP 116/71
[2019-10-26] MEDS: QUEtiapine FUMARATE 25 MG TABLET PO SCH (09:05)
[2019-10-26] MEDS: MULTIVITAMINS WITH MINERALS, THERAPEUTIC TABLET PO SCH (09:05)
[2019-10-26] MEDS: LORazepam 2 MG TABLET PO PRN ×2 (09:06→17:17)
[2019-10-26] MEDS: MetroNIDAZOLE 500 MG TABLET PO SCH ×2 (09:07→12:27)
[2019-10-26] MEDS: LACTOBACILLUS ACIDOPHILUS/BULGARICUS GRANULES PACKET PO SCH ×3 (09:07→17:16)
[2019-10-26] MEDS: HYDROCORTISONE 2.5% 30 GM CREAM TP SCH ×3 (09:09→17:00)
[2019-10-26 09:55] LABS: APPEARANCE,URINE TURBID (CLEAR); BILIRUBIN,URINE NEGATIVE (NEGATIVE); GLUCOSE, URINE (UA) NEGATIVE (NEGATIVE); KETONES,URINE TRACE mg/dL (NEGATIVE); LEUKOCYTE ESTERASE ,URINE TRACE (NEGATIVE); NITRATE,URINE NEGATIVE (NEGATIVE); OCCULT BLOOD,URINE MODERATE (NEGATIVE); PH,URINE 5.5 (5.0-8.0); PROTEIN,URINE NEGATIVE (NEGATIVE); UROBILINOGEN,URINE 0.2 mg/dL (<=1.0)
[2019-10-26 10:00] LABS: AMPHET/METH SCREEN,URINE NEGATIVE (NEGATIVE); BARBITURATE SCREEN, URINE NEGATIVE (NEGATIVE); BENZODIAZEPINES SCREEN,URINE NEGATIVE (NEGATIVE); CANNABINOID SCREEN,URINE NEGATIVE (NEGATIVE); COCAINE SCREEN,URINE NEGATIVE (NEGATIVE); METHADONE SCREEN, URINE NEGATIVE (NEGATIVE); OPIATE SCREEN,URINE NEGATIVE (NEGATIVE)
[2019-10-26 10:25] LABS: PHENCYCLIDINE SCREEN,URINE NEGATIVE (NEGATIVE)
[2019-10-26 10:29] LABS: WBC,URINE 0-2 /HPF (0-5)
[2019-10-26 10:30] LABS: BACTERIA,URINE Moderate /HPF (None Seen); SQUAMOUS EPITHELIAL CELL,UR Moderate /LPF (None Seen)
[2019-10-26 10:31] LABS: AMORPHOUS SEDIMENT,UR Many /LPF (None Seen); FINE GRANULAR CASTS,URINE 0-2 /LPF (None Seen)
[2019-10-26 11:20] LABS: GLUCOMETER DEV NAME(LOC) BV3N.; GLUCOSE,POINT OF CARE 133 MG/DL (70-110)
[2019-10-26] MEDS: LOPERAMIDE HCL 2 MG CAPSULE PO PRN ×2 (13:51→21:06)
[2019-10-26] MEDS: QUEtiapine FUMARATE 100 MG TABLET PO SCH (17:16)
[2019-10-26] MEDS: IBUPROFEN 400 MG TABLET PO PRN (17:17)
[2019-10-26 17:26] LABS: GLUCOMETER DEV NAME(LOC) BV3N.; GLUCOSE,POINT OF CARE 82 MG/DL (70-110)
[2019-10-26 18:35] VITALS: BP 108/66
[2019-10-26] MEDS: GuaiFENesin/D-METHORPHAN [SUGAR-FREE] 200-20MG/10 ML SYRUP UDCUP PO PRN (20:22)
[2019-10-26] MEDS: MAG HYDROX/AL HYDROX/SIMETH ES 30 ML SUSPENSION UDCUP PO PRN (20:22)
[2019-10-26] MEDS: ZOLPIDEM TARTRATE 10 MG TABLET PO PRN (22:56)
[2019-10-27 00:05] VITALS: BP 135/76
[2019-10-27] MEDS: SIMETHICONE 80 MG CHEWABLE TABLET CHEW SCH ×4 (00:09→17:40)
[2019-10-27] MEDS: ACETAMINOPHEN 325 MG TABLET PO PRN (00:09)
[2019-10-27] MEDS: HALOPERIDOL 5 MG TABLET PO PRN ×2 (00:09→17:41)
[2019-10-27] MEDS: IBUPROFEN 400 MG TABLET PO PRN (02:24)
[2019-10-27 02:36] VITALS: BP 135/76
[2019-10-27] MEDS: ZINC OXIDE 40%/COD LIVER OIL 57 GM PASTE TP PRN (03:06)
[2019-10-27] MEDS: LORazepam 2 MG TABLET PO PRN ×2 (03:42→17:41)
[2019-10-27] MEDS: MULTIVITAMINS WITH MINERALS, THERAPEUTIC TABLET PO SCH (08:44)
[2019-10-27] MEDS: LACTOBACILLUS ACIDOPHILUS/BULGARICUS GRANULES PACKET PO SCH ×3 (08:44→17:40)
[2019-10-27] MEDS: HYDROCORTISONE 2.5% 30 GM CREAM TP SCH ×3 (08:45→17:41)
[2019-10-27] MEDS: QUEtiapine FUMARATE 100 MG TABLET PO SCH ×2 (08:45→17:41)
[2019-10-27] MEDS: GuaiFENesin/D-METHORPHAN [SUGAR-FREE] 200-20MG/10 ML SYRUP UDCUP PO PRN (10:08)
[2019-10-27 11:38] LABS: GLUCOMETER DEV NAME(LOC) BV3N.; GLUCOSE,POINT OF CARE 91 MG/DL (70-110)
[2019-10-27] MEDS ORDERED: DiphenhydrAMINE HCL 25 MG CAPSULE PO PRN (12:30)
[2019-10-27 16:22] VITALS: BP 116/67
[2019-10-27] MEDS: MAG HYDROX/AL HYDROX/SIMETH ES 30 ML SUSPENSION UDCUP PO PRN (20:55)
[2019-10-27] MEDS: ZOLPIDEM TARTRATE 10 MG TABLET PO PRN (22:15)
[2019-10-28] MEDS: SIMETHICONE 80 MG CHEWABLE TABLET CHEW SCH ×4 (00:20→17:28)
[2019-10-28] MEDS: IBUPROFEN 400 MG TABLET PO PRN ×2 (00:21→22:14)
[2019-10-28 00:22] VITALS: BP 126/77
[2019-10-28] MEDS: LOPERAMIDE HCL 2 MG CAPSULE PO PRN ×2 (00:56→16:44)
[2019-10-28] MEDS: ACETAMINOPHEN 325 MG TABLET PO PRN ×2 (04:54→16:39)
[2019-10-28] MEDS: QUEtiapine FUMARATE 100 MG TABLET PO SCH ×2 (09:34→16:39)
[2019-10-28] MEDS: LACTOBACILLUS ACIDOPHILUS/BULGARICUS GRANULES PACKET PO SCH ×3 (09:34→16:43)
[2019-10-28] MEDS: MULTIVITAMINS WITH MINERALS, THERAPEUTIC TABLET PO SCH (09:34)
[2019-10-28] MEDS: HYDROCORTISONE 2.5% 30 GM CREAM TP SCH ×3 (09:38→17:28)
[2019-10-28] MEDS: LORazepam 2 MG TABLET PO PRN ×2 (09:38→22:23)
[2019-10-28 16:32] LABS: GLUCOMETER DEV NAME(LOC) BV3N.; GLUCOSE,POINT OF CARE 99 MG/DL (70-110)
[2019-10-28] MEDS: MAG HYDROX/AL HYDROX/SIMETH ES 30 ML SUSPENSION UDCUP PO PRN (16:42)
[2019-10-28] MEDS: ZINC OXIDE 40%/COD LIVER OIL 57 GM PASTE TP PRN (17:29)
[2019-10-28] MEDS: GuaiFENesin/D-METHORPHAN [SUGAR-FREE] 200-20MG/10 ML SYRUP UDCUP PO PRN (18:02)
[2019-10-28 18:12] VITALS: BP 125/57
[2019-10-28] MEDS: ZOLPIDEM TARTRATE 10 MG TABLET PO PRN (22:33)
[2019-10-28 23:31] LABS: GLUCOMETER DEV NAME(LOC) BV3N.; GLUCOSE,POINT OF CARE 100 MG/DL (70-110)
[2019-10-29] MEDS: SIMETHICONE 80 MG CHEWABLE TABLET CHEW SCH ×3 (00:04→12:32)
[2019-10-29] MEDS: ACETAMINOPHEN 325 MG TABLET PO PRN ×2 (02:40→13:30)
[2019-10-29] MEDS: LORazepam 2 MG TABLET PO PRN ×2 (03:19→10:31)
[2019-10-29] MEDS: GuaiFENesin/D-METHORPHAN [SUGAR-FREE] 200-20MG/10 ML SYRUP UDCUP PO PRN ×2 (03:19→13:29)
[2019-10-29] MEDS: LACTOBACILLUS ACIDOPHILUS/BULGARICUS GRANULES PACKET PO SCH ×3 (08:23→16:10)
[2019-10-29] MEDS: MULTIVITAMINS WITH MINERALS, THERAPEUTIC TABLET PO SCH (08:24)
[2019-10-29] MEDS: HYDROCORTISONE 2.5% 30 GM CREAM TP SCH ×3 (08:25→16:14)
[2019-10-29] MEDS: QUEtiapine FUMARATE 100 MG TABLET PO SCH ×2 (08:25→16:10)
[2019-10-29 08:57] VITALS: BP 128/81
[2019-10-29] MEDS ORDERED: SIME80 PO (10:54)
[2019-10-29] MEDS ORDERED: ACID1GRA PO (10:55)
[2019-10-29] MEDS ORDERED: QUET100T PO (10:55)
[2019-10-29] MEDS: MAG HYDROX/AL HYDROX/SIMETH ES 30 ML SUSPENSION UDCUP PO PRN (13:28)
== END 2019-10-29 16:10 | disposition home or self-care (01) | DRG 750 ==
LOC: B3A 23:22
PROVIDERS: ADMIT Psychiatry & Neurology Child & Adolescent Psychiatry; ATTEND Psychiatry & Neurology Child & Adolescent Psychiatry
DX: F25.0 Schizoaffective disorder, bipolar type (principal); R15.9 Full incontinence of feces; R45.851 Suicidal ideations; E11.9 Type 2 diabetes mellitus without complications; E78.5 Hyperlipidemia, unspecified; F41.9 Anxiety disorder, unspecified; I25.10 Atherosclerotic heart disease of native coronary artery without angina pectoris; F19.10 Other psychoactive substance abuse, uncomplicated; Z91.19 Patient's noncompliance with other medical treatment and regimen; Z95.1 Presence of aortocoronary bypass graft
CPT/HCPCS: 80307; 83036; 84439; 84443; 87081; 87086; 87324; 87449

== ENCOUNTER 2019-10-22 12:02 | Emergency (ER) | payer MEDICAID, OTHER ==
[~2019-10-22] VITALS: Ht 165.1 cm; Wt 50.0 kg
[2019-10-22] MEDS ORDERED: LOPE-202 PO (12:16)
[2019-10-22 12:24] LABS: GLUCOSE,POINT OF CARE 94 MG/DL (70-110)
[2019-10-22] MEDS ORDERED: ZINC OXIDE 40%/COD LIVER OIL 57 GM PASTE TP ONE (13:30)
[2019-10-22] MEDS ORDERED: LOPE2 PO (13:32)
[2019-10-22 14:17] LABS: HEMATOCRIT 32.5 % (36-46); HEMOGLOBIN 10.4 g/dL (12.0-16.0); MEAN CORPUSCULAR VOLUME 81 fL (80-100); PLATELET COUNT (AUTO) 310 K/uL (150-450); RED BLOOD CELL COUNT(AUTO) 4.01 MIL/uL (4.00-5.20); RED CELL DISTRIBUTION WIDTH 18.3 % (11.5-14.5)
[2019-10-22 14:27] LABS: ANION GAP 7 mmol/L (8-16); CALCIUM, TOTAL 8.9 mg/dL (8.8-10.5); CARBON DIOXIDE 28 mmol/L (22-29); CHLORIDE 102 mmol/L (98-107); CREATININE 0.83 mg/dL (0.60-1.30); GLOMERULAR FILTR. RATE CALC > 60 mL/min (>60); GLUCOSE,RANDOM 91 mg/dL (70-110); POTASSIUM 4.5 mmol/L (3.5-5.1); SODIUM SERUM 137 mmol/L (136-145); UREA NITROGEN, BLOOD 13 mg/dL (7-18)
[2019-10-22 14:32] LABS: ALANINE AMINOTRANSFERASE 28 U/L (12-78); ALBUMIN 3.3 g/dL (3.4-5.0); ALKALINE PHOSPHATASE 86 U/L (46-116); ASPARTATE AMINOTRANSFERASE 21 U/L (15-37); BILIRUBIN,TOTAL 0.1 mg/dL (0.1-1.0)
[2019-10-22 15:11] LABS: BAND NEUTROPHILS % (MANUAL) 1 % (0-5); EOSINOPHILS % (MANUAL) 1 % (1-6); LYMPHOCYTES % (MANUAL) 20 % (22-44); MONOCYTES % (MANUAL) 7 % (2-9); SEGMENTED NEUTROPHILS % 71 % (40-70)
[2019-10-22 16:30] VITALS: BP 138/59
== END 2019-10-22 16:38 | disposition home or self-care (01) ==
LOC: EMS 12:04
DX: K52.9 Noninfective gastroenteritis and colitis, unspecified (principal); L30.8 Other specified dermatitis; I10 Essential (primary) hypertension; E11.9 Type 2 diabetes mellitus without complications; F12.90 Cannabis use, unspecified, uncomplicated; F17.210 Nicotine dependence, cigarettes, uncomplicated; Z79.899 Other long term (current) drug therapy

== ENCOUNTER 2024-05-23 18:54 | Inpatient (IN) | payer MEDICARE, MEDICAID ==
[~2024-05-23] VITALS: Ht 165.1 cm; Wt 48.4 kg
[2024-05-23] MEDS ORDERED: TRAZ-252 PO (19:53)
[2024-05-23] MEDS ORDERED: LACTAB PO (19:53)
[2024-05-23] MEDS ORDERED: OMEG100014 PO (19:53)
[2024-05-23] MEDS ORDERED: CLOZ100T11 PO (19:53)
[2024-05-23] MEDS ORDERED: LACT1CAP70 PO (19:53)
[2024-05-23] MEDS ORDERED: TRAM50TA5 PO (19:53)
[2024-05-23] MEDS ORDERED: DIVA-111 PO (19:53)
[2024-05-23] MEDS ORDERED: CHOL500013 PO (19:53)
[2024-05-23] MEDS ORDERED: RISP4TAB94 PO (19:53)
[2024-05-23] MEDS: LORazepam 1 MG TABLET PO ONE (20:27)
[2024-05-23] MEDS: DiphenhydrAMINE HCL 25 MG CAPSULE PO ONE (20:28)
[2024-05-23] MEDS: OLANZapine 5 MG RAPDIS TABLET PO ONE (20:28)
[2024-05-23 20:45] LABS: APPEARANCE,URINE HAZY (CLEAR); BILIRUBIN,URINE NEGATIVE (NEGATIVE); COLOR,URINE LIGHT YELLOW (YELLOW); GLUCOSE, URINE (UA) NEGATIVE (NEGATIVE); KETONES,URINE NEGATIVE (NEGATIVE); LEUKOCYTE ESTERASE ,URINE LARGE (NEGATIVE); NITRATE,URINE NEGATIVE (NEGATIVE); OCCULT BLOOD,URINE SMALL (NEGATIVE); PH,URINE 6.5 (5.0-8.0); PH,URINE DRUG SCREEN 6.5 (5.0-8.0); PROTEIN,URINE TRACE mg/dL (NEGATIVE); SPECIFIC GRAVITIY, URINE 1.016 (1.003-1.030); UROBILINOGEN,URINE <=1.0 mg/dL (<=1.0)
[2024-05-23 20:50] LABS: METHADONE SCREEN, URINE NEGATIVE (NEGATIVE)
[2024-05-23 20:59] LABS: WBC,URINE >100 /HPF (0-5)
[2024-05-23 21:00] LABS: BACTERIA,URINE Moderate /HPF (None Seen)
[2024-05-23 21:04] LABS: ALCOHOL, URINE DRUG SCREEN NEGATIVE (NEGATIVE); AMPHET/METH SCREEN,URINE NEGATIVE (NEGATIVE); BARBITURATE SCREEN, URINE NEGATIVE (NEGATIVE); BENZODIAZEPINES SCREEN,URINE NEGATIVE (NEGATIVE); CANNABINOID SCREEN,URINE NEGATIVE (NEGATIVE); COCAINE SCREEN,URINE NEGATIVE (NEGATIVE); OPIATE SCREEN,URINE NEGATIVE (NEGATIVE); PHENCYCLIDINE SCREEN,URINE NEGATIVE (NEGATIVE)
[2024-05-23] MEDS: CEPHALEXIN MONOHYDRATE 500 MG CAPSULE PO ONE (21:41)
[2024-05-23 22:16] LABS: BASOPHILS % (AUTO) 0.9 % (0.0-2.0); EOSINOPHILS % (AUTO) 1.4 % (1.0-6.0); HEMATOCRIT 35.1 % (36-46); HEMOGLOBIN 11.5 g/dL (12.0-16.0); LYMPHOCYTES # (AUTO) 2.6 K/uL (1.0-4.8); LYMPHOCYTES % (AUTO) 37.5 % (22.0-44.0); MEAN CORPUSCULAR HEMOGLOBIN 27.6 pg (26.0-34.0); MEAN CORPUSCULAR HGB CONC 32.8 G/dL (31.0-37.0); MEAN CORPUSCULAR VOLUME 84 fL (80-100); MONOCYTES # (AUTO) 0.4 K/uL (0.1-1.0); MONOCYTES % (AUTO) 6.4 % (2.0-9.0); NEUTROPHILS # (AUTO) 3.7 K/uL (1.8-7.7); NEUTROPHILS % (AUTO) 53.8 % (40.0-70.0); PLATELET COUNT (AUTO) 187 K/uL (150-450); RED BLOOD CELL COUNT(AUTO) 4.16 MIL/uL (4.00-5.20); RED CELL DISTRIBUTION WIDTH 17.7 % (11.5-14.5); WHITE BLOOD COUNT (AUTO) 6.9 K/uL (4.5-11.0)
[2024-05-23 22:22] LABS: ALCOHOL, BLOOD (SERUM) < 3 mg/dL (0-10)
[2024-05-23 22:32] LABS: ANION GAP 11 mmol/L (8-16); CALCIUM, TOTAL 9.6 mg/dL (8.8-10.5); CARBON DIOXIDE 27 mmol/L (22-29); CHLORIDE 103 mmol/L (98-107); CREATININE 0.73 mg/dL (0.60-1.30); GLOMERULAR FILTR. RATE CALC > 60 mL/min (>60); GLUCOSE,RANDOM 128 mg/dL (70-110); SODIUM SERUM 141 mmol/L (136-145); UREA NITROGEN, BLOOD 17 mg/dL (7-18)
[2024-05-23] MEDS: POTASSIUM CHLORIDE 20 MEQ ER TABLET PO ONE (22:55)
[2024-05-23 23:05] LABS: THYROID STIMULATING HORMONE 5.52 uIU/mL (0.36-3.74)
[2024-05-23 23:06] LABS: COVID AG,FIA SOURCE NPH
[2024-05-23 23:25] LABS: SARS-COV2 (COVID) ANTIGEN,FIA Negative (Negative)
[2024-05-24] MEDS: HALOPERIDOL 5 MG TABLET PO PRN (07:17)
[2024-05-24] MEDS: ACETAMINOPHEN 500 MG TABLET PO ONE (07:18)
[2024-05-24] MEDS: LORazepam 2 MG TABLET PO PRN (07:18)
[2024-05-24] MEDS: CEPHALEXIN MONOHYDRATE 500 MG CAPSULE PO ONE (08:02)
[2024-05-24 10:26] VITALS: O2SAT 98
[2024-05-24] MEDS: CEPHALEXIN MONOHYDRATE 500 MG CAPSULE PO SCH (12:40)
[2024-05-24] MEDS ORDERED: -PHARMACY VACCINE NOTE- MISC ONE (13:00)
[2024-05-24] MEDS: INFLUENZA VIRUS VACCINE TVS (6MO+) 2024-25/PF 45 MCG/0.5 ML SYRINGE IM. ONE (13:00)
[2024-05-24] MEDS ORDERED: LOPERAMIDE HCL 2 MG CAPSULE PO PRN (14:45)
[2024-05-24] MEDS ORDERED: ONDANSETRON 4 MG TABLET PO PRN (14:45)
[2024-05-24] MEDS ORDERED: NICOTINE 14 MG/24 HOUR PATCH TD PRN (14:45)
[2024-05-24] MEDS ORDERED: CloNIDine HCL 0.1 MG TABLET PO PRN (14:45)
[2024-05-24] MEDS ORDERED: DOCUSATE SODIUM 100 MG CAPSULE PO PRN (14:45)
[2024-05-24] MEDS ORDERED: ALBUTEROL SULFATE HFA 90 MCG/PUFF 8 GM INHALER IH PRN (14:45)
[2024-05-24] MEDS ORDERED: MAGNESIUM HYDROXIDE SUSPENSION 30 ML UDCUP PO PRN (14:45)
[2024-05-24] MEDS ORDERED: PETROLATUM,WHITE 28 GM JELLY TP PRN (14:45)
[2024-05-24] MEDS ORDERED: MAG HYDROX/ALUMINUM HYD/SIMETH ES 30 ML SUSPENSION UDCUP PO PRN (14:45)
[2024-05-24] MEDS: ZOLPIDEM TARTRATE 10 MG TABLET PO PRN (20:46)
[2024-05-24 21:30] VITALS: RESP 17
[2024-05-24] MEDS: ACETAMINOPHEN 325 MG TABLET PO PRN (21:30)
[2024-05-24 22:24] VITALS: RESP 16
[2024-05-25 01:15] VITALS: BP 125/63; PULSE 83; RESP 18; TEMP 96.6; O2SAT 98
[2024-05-25] MEDS: IBUPROFEN 400 MG TABLET PO PRN (01:27)
[2024-05-25 08:16] VITALS: BP 116/85; PULSE 8; PULSE 85; RESP 15; TEMP 98; O2SAT 96
[2024-05-25] MEDS: OMEGA-3/DHA/EPA/FISH OIL 1,000 MG CAPSULE PO SCH (08:33)
[2024-05-25] MEDS: LACTOBACILLUS ACIDOPHILUS/BULGARICUS TABLET PO SCH (08:34)
[2024-05-25] MEDS: CHOLECALCIFEROL (VIT D3) 5,000 [125 MCG] UNITS CAPSULE PO SCH (08:34)
[2024-05-25 09:29] LABS: HEMOGLOBIN A1C 5.3 % (3.8-5.6)
[2024-05-25 09:49] LABS: FREE T4 (FREE THYROXINE) 0.97 ng/dL (0.76-1.46); THYROID STIMULATING HORMONE 4.28 uIU/mL (0.36-3.74)
[2024-05-25 09:55] LABS: POTASSIUM 3.7 mmol/L (3.5-5.1)
[2024-05-25] MEDS ORDERED: CLOZ100T12 PO (14:53)
[2024-05-25] MEDS ORDERED: MELA5TAB21 PO (14:54)
[2024-05-25] MEDS: DIVALPROEX SODIUM 250 MG DR TABLET PO SCH (16:55)
[2024-05-25] MEDS: RisperiDONE 4 MG TABLET PO SCH (16:56)
[2024-05-25 18:45] VITALS: RESP 16; O2SAT 96
[2024-05-25 19:45] VITALS: RESP 16; O2SAT 96
[2024-05-25] MEDS: MELATONIN 5 MG TABLET PO SCH (20:22)
[2024-05-25] MEDS: TraZODone HCL 50 MG TABLET PO SCH (20:22)
[2024-05-25] MEDS: CloZAPine 100 MG TABLET PO SCH (20:23)
[2024-05-25] MEDS ORDERED: [UNRECOGNIZED DRUG - OTHER] PO SCH (21:00)
[2024-05-26] MEDS: CloZAPine 100 MG TABLET PO SCH (08:47)
[2024-05-26 15:50] VITALS: BP 116/69; PULSE 108; RESP 18; TEMP 97.8; O2SAT 98
[2024-05-26 21:34] VITALS: BP 107/60; PULSE 120; RESP 18; TEMP 96.6; O2SAT 98
[2024-05-26] MEDS: GuaiFENesin/D-METHORPHAN [SUGAR-FREE] 200-20MG/10 ML SYRUP UDCUP PO PRN (21:53)
[2024-05-27 08:19] VITALS: BP 125/61; PULSE 100; RESP 16; TEMP 96.7; O2SAT 100
[2024-05-27 10:08] VITALS: RESP 16
[2024-05-27 11:08] VITALS: RESP 18
[2024-05-27 21:11] LABS: GLUCOMETER DEV NAME(LOC) BV2S.; GLUCOSE,POINT OF CARE 158 MG/DL (70-110)
[2024-05-27 21:56] VITALS: BP 104/59; PULSE 100; RESP 18; TEMP 97.2; O2SAT 100
[2024-05-28 08:17] VITALS: BP 147/80; PULSE 100; RESP 18; TEMP 97.9; O2SAT 99
[2024-05-28] MEDS ORDERED: CLOZ100T61 PO (11:55)
[2024-05-28] MEDS ORDERED: CEPH-558 PO (11:57)
[2024-05-28 11:58] VITALS: RESP 19; O2SAT 99
[2024-05-28 12:58] VITALS: RESP 18
== END 2024-05-28 15:10 | DRG 750 ==
LOC: EMS 18:54 → EDBEDREQSVC 22:53 → B2S 05-24 07:27
PROVIDERS: ADMIT Psychiatry & Neurology Child & Adolescent Psychiatry; ATTEND Psychiatry & Neurology Child & Adolescent Psychiatry
PROC: GZ56ZZZ Individual Psychotherapy, Supportive (ICD-10-PCS; principal; 2024-05-25)
DX: F25.1 Schizoaffective disorder, depressive type (principal); R45.851 Suicidal ideations; E11.9 Type 2 diabetes mellitus without complications; I25.10 Atherosclerotic heart disease of native coronary artery without angina pectoris; Z20.822 Contact with and (suspected) exposure to COVID-19; N39.0 Urinary tract infection, site not specified; E87.6 Hypokalemia; E78.00 Pure hypercholesterolemia, unspecified; F12.90 Cannabis use, unspecified, uncomplicated; F41.9 Anxiety disorder, unspecified; I10 Essential (primary) hypertension; Z79.899 Other long term (current) drug therapy; Z87.891 Personal history of nicotine dependence; Z95.1 Presence of aortocoronary bypass graft; K52.9 Noninfective gastroenteritis and colitis, unspecified
CPT/HCPCS: 80048; 80061; 80307; 81001; 82962; 83036; 84132; 84439; 84443; 85025; 87077; 87081; 87086; 87186; 87481; 99285; G0480

== ENCOUNTER 2024-10-07 14:45 | Inpatient (IN) | payer MEDICARE, MEDICAID ==
[~2024-10-07] VITALS: Ht 162.6 cm; Wt 45.0 kg
[~2024-10-07 14:45] MED LIST changes: -ASPI-728 PO; -ATOR10TA84 PO; +CEPH-558 PO; +CHOL500013 PO; +CLOZ100T12 PO; +CLOZ100T61 PO; +DIVA-111 PO; +LACT1CAP70 PO; +LACTAB PO; +MELA5TAB21 PO; -METF-960 PO; +OMEG100014 PO; -QUET100T PO; -QUET25TA PO; +RISP4TAB94 PO; +TRAZ-252 PO
[2024-10-07 16:31] LABS: COVID AG,FIA SOURCE NASAL SWAB
[2024-10-07 16:37] LABS: BASOPHILS % (AUTO) 1.7 % (0.0-2.0); EOSINOPHILS % (AUTO) 3.2 % (1.0-6.0); HEMATOCRIT 33.1 % (36-46); HEMOGLOBIN 10.7 g/dL (12.0-16.0); LYMPHOCYTES # (AUTO) 2.8 K/uL (1.0-4.8); LYMPHOCYTES % (AUTO) 46.5 % (22.0-44.0); MEAN CORPUSCULAR HEMOGLOBIN 27.5 pg (26.0-34.0); MEAN CORPUSCULAR HGB CONC 32.5 G/dL (31.0-37.0); MEAN CORPUSCULAR VOLUME 85 fL (80-100); MONOCYTES # (AUTO) 0.6 K/uL (0.1-1.0); NEUTROPHILS # (AUTO) 2.4 K/uL (1.8-7.7); NEUTROPHILS % (AUTO) 39.6 % (40.0-70.0); PLATELET COUNT (AUTO) 190 K/uL (150-450); RED BLOOD CELL COUNT(AUTO) 3.91 MIL/uL (4.00-5.20); RED CELL DISTRIBUTION WIDTH 17.6 % (11.5-14.5); WHITE BLOOD COUNT (AUTO) 6.1 K/uL (4.5-11.0)
[2024-10-07 16:41] LABS: ANION GAP 9 mmol/L (8-16); CALCIUM, TOTAL 9.2 mg/dL (8.8-10.5); CARBON DIOXIDE 30 mmol/L (22-29); CHLORIDE 105 mmol/L (98-107); CREATININE 0.65 mg/dL (0.60-1.30); GLOMERULAR FILTR. RATE CALC > 60 mL/min (>60); GLUCOSE,RANDOM 80 mg/dL (70-110); POTASSIUM 4.2 mmol/L (3.5-5.1); SODIUM SERUM 144 mmol/L (136-145); UREA NITROGEN, BLOOD 18 mg/dL (7-18)
[2024-10-07 16:53] LABS: SARS-COV2 (COVID) ANTIGEN,FIA Negative (Negative)
[2024-10-07 17:03] LABS: ALCOHOL, BLOOD (SERUM) < 3 mg/dL (0-10)
[2024-10-07] MEDS ORDERED: LURA20TA2 PO (18:58)
[2024-10-07] MEDS ORDERED: PROP10TA72 PO (18:58)
[2024-10-07] MEDS ORDERED: TRAM50TA5 PO (18:58)
[2024-10-07] MEDS ORDERED: HALOPERIDOL 5 MG TABLET PO PRN (19:00)
[2024-10-07 23:27] VITALS: BP 141/77; PULSE 78; RESP 18; TEMP 98.2; O2SAT 100
[2024-10-08] MEDS: ZOLPIDEM TARTRATE 10 MG TABLET PO PRN (00:30)
[2024-10-08] MEDS: OMEGA-3/DHA/EPA/FISH OIL 1,000 MG CAPSULE PO SCH (09:53)
[2024-10-08] MEDS: LACTOBACILLUS ACIDOPHILUS/BULGARICUS GRANULES PACKET PO SCH (09:53)
[2024-10-08] MEDS: CHOLECALCIFEROL (VIT D3) 5,000 [125 MCG] UNITS CAPSULE PO SCH (09:53)
[2024-10-08] MEDS: LACTASE 3,000 UNIT TABLET PO SCH (09:53)
[2024-10-08] MEDS: PROPRANOLOL HCL 10 MG TABLET PO SCH (09:54)
[2024-10-08 10:27] VITALS: BP 130/73; PULSE 107; RESP 18; TEMP 97.7; O2SAT 100
[2024-10-08] MEDS ORDERED: CloNIDine HCL 0.1 MG TABLET PO PRN (16:00)
[2024-10-08] MEDS ORDERED: PETROLATUM,WHITE 28 GM JELLY TP PRN (16:00)
[2024-10-08] MEDS ORDERED: ONDANSETRON 4 MG TABLET PO PRN (16:00)
[2024-10-08] MEDS ORDERED: DOCUSATE SODIUM 100 MG CAPSULE PO PRN (16:00)
[2024-10-08] MEDS ORDERED: MAG HYDROX/ALUMINUM HYD/SIMETH ES 30 ML SUSPENSION UDCUP PO PRN (16:00)
[2024-10-08] MEDS ORDERED: ALBUTEROL SULFATE HFA 90 MCG/PUFF 8 GM INHALER IH PRN (16:00)
[2024-10-08] MEDS ORDERED: NICOTINE 14 MG/24 HOUR PATCH TD PRN (16:00)
[2024-10-08] MEDS ORDERED: MAGNESIUM HYDROXIDE SUSPENSION 30 ML UDCUP PO PRN (16:00)
[2024-10-08] MEDS: ACETAMINOPHEN 325 MG TABLET PO PRN (16:12)
[2024-10-08 20:39] VITALS: PULSE 90; RESP 18; TEMP 97.3; O2SAT 99
[2024-10-09 08:47] VITALS: RESP 18
[2024-10-09] MEDS: CloZAPine 100 MG TABLET PO SCH ×2 (13:06→21:29)
[2024-10-09] MEDS: DIVALPROEX SODIUM 250 MG DR TABLET PO SCH (13:06)
[2024-10-09] MEDS: RisperiDONE 4 MG TABLET PO SCH (17:30)
[2024-10-09] MEDS: TraZODone HCL 50 MG TABLET PO SCH (21:29)
[2024-10-09 21:31] VITALS: RESP 18
[2024-10-10 04:00] VITALS: BP 122/57; PULSE 105; RESP 18; TEMP 98.2
[2024-10-10 05:10] VITALS: BP 119/62; PULSE 86; RESP 18; TEMP 97.8
[2024-10-10 12:14] VITALS: BP 120/64; PULSE 79; RESP 18; TEMP 97.9; O2SAT 96
[2024-10-10 17:32] VITALS: BP 132/68; PULSE 83; RESP 19; TEMP 97.6; O2SAT 98
[2024-10-10] MEDS: IBUPROFEN 400 MG TABLET PO PRN (17:32)
[2024-10-10] MEDS: LOPERAMIDE HCL 2 MG CAPSULE PO PRN (18:27)
[2024-10-10 20:51] VITALS: BP 110/59; PULSE 65; RESP 17; TEMP 97.3; O2SAT 99
[2024-10-10 20:53] VITALS: BP 110/60; PULSE 65; RESP 18; TEMP 97.3; O2SAT 99
[2024-10-11 09:21] VITALS: RESP 18; TEMP 97.8
[2024-10-11 14:13] VITALS: RESP 18
[2024-10-11 15:12] VITALS: RESP 20
[2024-10-11] MEDS: GuaiFENesin/D-METHORPHAN [SUGAR-FREE] 200-20MG/10 ML SYRUP UDCUP PO PRN (18:15)
[2024-10-11 20:22] VITALS: BP 141/71; PULSE 100; RESP 20; TEMP 98.4; O2SAT 100
[2024-10-11 22:19] VITALS: RESP 16
[2024-10-12 09:07] LABS: HEMOGLOBIN A1C 5.7 % (3.8-5.6)
[2024-10-12 09:09] LABS: BASOPHILS % (AUTO) 0.6 % (0.0-2.0); EOSINOPHILS % (AUTO) 3.2 % (1.0-6.0); HEMATOCRIT 33.9 % (36-46); HEMOGLOBIN 10.9 g/dL (12.0-16.0); LYMPHOCYTES # (AUTO) 3.2 K/uL (1.0-4.8); LYMPHOCYTES % (AUTO) 39.5 % (22.0-44.0); MEAN CORPUSCULAR HEMOGLOBIN 27.2 pg (26.0-34.0); MEAN CORPUSCULAR HGB CONC 32.1 G/dL (31.0-37.0); MEAN CORPUSCULAR VOLUME 85 fL (80-100); MONOCYTES # (AUTO) 0.6 K/uL (0.1-1.0); MONOCYTES % (AUTO) 7.8 % (2.0-9.0); NEUTROPHILS # (AUTO) 3.9 K/uL (1.8-7.7); NEUTROPHILS % (AUTO) 48.9 % (40.0-70.0); PLATELET COUNT (AUTO) 166 K/uL (150-450); RED CELL DISTRIBUTION WIDTH 18.1 % (11.5-14.5); WHITE BLOOD COUNT (AUTO) 8.1 K/uL (4.5-11.0)
[2024-10-12 09:26] LABS: ALANINE AMINOTRANSFERASE 15 U/L (12-78); ALBUMIN 2.8 g/dL (3.4-5.0); ALKALINE PHOSPHATASE 70 U/L (46-116); ANION GAP 7 mmol/L (8-16); ASPARTATE AMINOTRANSFERASE 21 U/L (15-37); BILIRUBIN,TOTAL 0.3 mg/dL (0.1-1.0); CARBON DIOXIDE 28 mmol/L (22-29); CHLORIDE 106 mmol/L (98-107); CHOL/HDL RATIO 3.9 (3.9-5.7); CHOLESTEROL 238 mg/dL (131-200); CREATININE 0.55 mg/dL (0.60-1.30); GLOMERULAR FILTR. RATE CALC > 60 mL/min (>60); GLUCOSE,RANDOM 86 mg/dL (70-110); HDL CHOLESTEROL 61 mg/dL (40-60); LDL CHOL (CALC.) 166 mg/dL (0-130); POTASSIUM 3.7 mmol/L (3.5-5.1); SODIUM SERUM 141 mmol/L (136-145); THYROID STIMULATING HORMONE 0.79 uIU/mL (0.36-3.74); TOTAL PROTEIN, SERUM 6.4 g/dL (6.4-8.2); TRIGLYCERIDES 55 mg/dL (15-150); UREA NITROGEN, BLOOD 13 mg/dL (7-18)
[2024-10-12 11:24] VITALS: BP 129/73; PULSE 100; RESP 18; TEMP 97.6; O2SAT 96
[2024-10-12 16:45] VITALS: BP 134/79; PULSE 78; RESP 17; TEMP 98
[2024-10-12 17:45] VITALS: BP 111/73; PULSE 71; RESP 17; TEMP 98
[2024-10-12 21:28] VITALS: BP 137/89; PULSE 96; RESP 18; TEMP 98.2
[2024-10-12 22:30] VITALS: BP 138/85; PULSE 95; RESP 18; TEMP 98; O2SAT 98
[2024-10-12 23:36] VITALS: RESP 18
[2024-10-13 09:20] VITALS: BP 104/59; PULSE 108; RESP 18; TEMP 98; O2SAT 100
[2024-10-13] MEDS: LORazepam 2 MG TABLET PO PRN (12:27)
[2024-10-13] MEDS ORDERED: LURA20TA PO (13:22)
[2024-10-13] MEDS ORDERED: RISP4TAB94 PO (13:22)
[2024-10-13] MEDS ORDERED: TRAZ-252 PO (13:22)
[2024-10-13] MEDS ORDERED: CLOZ100T61 PO ×2 (13:22)
[2024-10-13] MEDS ORDERED: DIVA-111 PO (13:22)
[2024-10-13] MEDS: LURASIDONE HCL 20 MG TABLET PO SCH (16:36)
== END 2024-10-13 16:49 | DRG 885 ==
LOC: EMS 14:45 → 3EX 23:14
PROVIDERS: ADMIT Psychiatry & Neurology Child & Adolescent Psychiatry; ATTEND Psychiatry & Neurology Child & Adolescent Psychiatry
PROC: GZ56ZZZ Individual Psychotherapy, Supportive (ICD-10-PCS; 2024-10-08)
PROC: GZ52ZZZ Individual Psychotherapy, Cognitive (ICD-10-PCS; principal; 2024-10-09)
DX: F25.0 Schizoaffective disorder, bipolar type (principal); I10 Essential (primary) hypertension; E55.9 Vitamin D deficiency, unspecified; G47.00 Insomnia, unspecified; Z20.822 Contact with and (suspected) exposure to COVID-19; E11.9 Type 2 diabetes mellitus without complications; E78.00 Pure hypercholesterolemia, unspecified; I25.10 Atherosclerotic heart disease of native coronary artery without angina pectoris; F32.A Depression, unspecified; F41.9 Anxiety disorder, unspecified; G89.29 Other chronic pain; E73.9 Lactose intolerance, unspecified; F17.210 Nicotine dependence, cigarettes, uncomplicated; Z71.6 Tobacco abuse counseling; Z95.1 Presence of aortocoronary bypass graft
CPT/HCPCS: 80048; 80053; 80061; 80164; 83036; 84443; 85025; 87081; 99285; G0378; G0480